=== PATIENT | male | born 1985 | race Caucasian/White ===

== ENCOUNTER 2016-09-23 11:40 | Emergency (ER) | payer OTHER | END 2016-09-23 14:27 | disposition home or self-care (01) | LOC: ER1 11:40 | DX: S39.012A Strain of muscle, fascia and tendon of lower back, initial encounter (principal); V43.62XA Car passenger injured in collision with other type car in traffic accident, initial encounter; F17.210 Nicotine dependence, cigarettes, uncomplicated | CPT/HCPCS: 72131; 99284 ==